=== PATIENT | female | born 2000 | race Caucasian/White ===

== ENCOUNTER 2023-02-02 00:24 | Emergency (ER) | payer OTHER | END 2023-02-02 01:19 | disposition home or self-care (01) | LOC: CSHERS 00:24 | DX: M25.572 Pain in left ankle and joints of left foot (principal); G89.29 Other chronic pain ==

== ENCOUNTER 2023-03-19 22:04 | Emergency (ER) | payer OTHER ==
[2023-03-19] MEDS ORDERED: Oxymetazoline HCl 0.05% ( 15 ML ) ONE (23:54)
== END 2023-03-20 01:29 | disposition home or self-care (01) ==
LOC: CSHERS 22:04
DX: R04.0 Epistaxis (principal)
CPT/HCPCS: 93005